=== PATIENT | male | born 2000 ===

== ENCOUNTER 2019-04-13 19:00 | Emergency (ER) | payer SELFPAY ==
[2019-04-13] MEDS ORDERED: Ketorolac Tromethamine 30 MG/ML VIAL ONE (19:24)
--- NOTE | 2019-04-13 19:42 | RAD ---
Radiograph thoracic spine 3 views: DATE: 04/13/2019 HISTORY: 18-year-old male with nontraumatic mid back pain. COMPARISON: None FINDINGS: Vertebral body heights are maintained. There is a mild 12 degree levoscoliosis of the upper thoracic spine (measured from inferior endplate of T1 to inferior endplate of T6). There are no vertebral anomalies. No high-grade degenerative disc disease. Pedicles are intact. IMPRESSION: 1. No compression fracture. 2. Mild scoliosis of upper thoracic spine.
== END 2019-04-13 20:10 | disposition home or self-care (01) ==
LOC: ERS 19:00
DX: M41.9 Scoliosis, unspecified (principal); M54.6 Pain in thoracic spine
CPT/HCPCS: 72072; 96372; J1885